=== PATIENT | female | born 1960 | race American Indian/Alaskan Native ===

== ENCOUNTER 2020-08-15 07:06 | Day surgery (SDC) | payer BC | END 2020-08-15 07:07 | disposition home or self-care (01) | LOC: CATHLABREC 07:06 | PROVIDERS: ATTEND Internal Medicine | DX: R07.89 Other chest pain (principal); Z20.828 Contact with and (suspected) exposure to other viral communicable diseases; Z53.9 Procedure and treatment not carried out, unspecified reason | CPT/HCPCS: U0003 ==

== ENCOUNTER 2020-10-02 06:57 | Day surgery (SDC) | payer BC ==
[2020-10-02] MEDS ORDERED: ASPIRIN EC 325 MG TAB PO NR (07:23)
[2020-10-02] MEDS ORDERED: D5W/0.45% NACL 1,000 ML IV SCH (08:00)
[2020-10-02] MEDS ORDERED: SODIUM CHLORIDE 0.9% 500 ML 500 ML IV SCH (08:00)
[2020-10-02] MEDS ORDERED: HEPARIN/NS 5000 UNIT/500ML 1,000 ML IR ONE (08:16)
[2020-10-02 08:30] LABS: Basophils # (Auto) 0.1 K/mm3 (0.0-0.1); Basophils % (Auto) 0.8 % (0.0-1.8); Eosinophils # (Auto) 0.3 K/mm3 (0.0-0.4); Eosinophils % (Auto) 3.7 % (0.0-4.3); Hematocrit 39.2 % (30.3-42.9); Hemoglobin 12.8 gm/dl (10.1-14.3); Lymphocytes # (Auto) 1.7 K/mm3 (1.2-5.4); Lymphocytes % (Auto) 22.3 % (13.4-35.0); Mean Corpuscular HGB Conc 33 % (30-34); Mean Corpuscular Volume 78 fl (79-97); Monocytes # (Auto) 0.7 K/mm3 (0.0-0.8); Monocytes % (Auto) 9.3 % (0.0-7.3); Platelet Count 175 K/mm3 (140-440); Red Blood Count 5.02 M/mm3 (3.65-5.03); Red Cell Distribution Width 15.7 % (13.2-15.2)
[2020-10-02 08:39] LABS: INR 0.99 (0.87-1.13)
[2020-10-02 08:40] LABS: Partial Thromboplastin Time 38.7 Sec. (24.2-36.6)
[2020-10-02] MEDS: MIDAZOLAM 2 MG/2 ML INJ ONE ×2 (09:17→09:38)
[2020-10-02] MEDS: fentaNYL 100 MCG/2 ML INJ ONE ×2 (09:17→09:38)
[2020-10-02] MEDS: LIDOCAINE (2%) 20 MG/1 ML VIAL 20 ML MDV INFILTRATI ONE ×2 (09:17→09:41)
[2020-10-02] MEDS: VERAPAMIL 5 MG/2 ML INJ ONE ×2 (09:18→09:43)
[2020-10-02] MEDS: HEPARIN 10,000 UNITS/10 ML VIAL ONE ×2 (09:18→09:43)
[2020-10-02] MEDS: NITROGLYCERIN SYRINGE 3 ML ONE ×2 (09:19→09:43)
[2020-10-02] MEDS ORDERED: ONDANSETRON 4 MG/2 ML INJ ONE ×2 (09:51→11:12)
--- NOTE | 2020-10-02 10:22 | Short Stay Summary ---
Short Stay Documentation Date of service: 10/02/20 - History H&P: obtained from office - Allergies and Medications Current Medications: Allergies No Known Allergies Allergy (Unverified 08/15/20 08:45) Home Medications Medication Instructions Recorded Confirmed Last Taken Type Aspirin EC [Halfprin EC] 81 mg PO QDAY 10/02/20 10/02/20 10/01/20 History 81 mg AtorvaSTATin [Lipitor] 20 mg PO QHS 10/02/20 10/02/20 10/01/20 History 20 mg Baby Vitamin D3 2,000 mg PO DAILY 10/02/20 10/02/20 Unknown History Cetirizine HCl [ZyrTEC 10mg cap] 10 mg PO DAILY 10/02/20 10/02/20 10/01/20 History 10 mg Hydralazine HCl 50 mg PO BID 10/02/20 10/02/20 09/30/20 History 50 mg Losartan [Cozaar] 100 mg PO QDAY 10/02/20 10/02/20 09/30/20 History 100 mg Pantoprazole [Protonix] 40 mg PO QDAY 10/02/20 10/02/20 10/01/20 History 40 mg atenoloL [Tenormin] 50 mg PO BID 10/02/20 10/02/20 10/01/20 History 50 mg Active Medications Sodium Chloride (Nacl 0.9% 500 Ml) 500 mls @ 50 mls/hr IV DIRECT KAILA Stop: 10/02/20 17:59 Dextrose/Sodium Chloride (D5/0.45ns) 1,000 mls @ 50 mls/hr IV DIRECT KAILA Last Admin: 10/02/20 08:18 Dose: 50 mls/hr Documented by: - Brief post op/procedure progress note Date of procedure: 10/02/20 Pre-op diagnosis: Chest Pain, Abnormal MPI Stress Test Post-op diagnosis: other (Normal Coronaries) Procedure: [facility]- see dictated cath report Anesthesia: local Estimated blood loss: none Condition: stable - Disposition Condition at discharge: Good Disposition: DC-01 TO HOME OR SELFCARE - Discharge Diagnoses (1) Chest pain Status: Chronic (2) CKD (chronic kidney disease) Status: Chronic (3) HTN (hypertension) Status: Chronic (4) Normal coronary arteries Status: Chronic Short Stay Discharge Plan Activity: advance as tolerated Diet: low fat, low cholesterol, low salt Wound: open to air, keep clean and dry, per your surgeon's advice Follow up with: HELENA BRAY MD [Primary Care Provider] - 7 Days BEA DAVIS MD [Staff Physician] - 7 Days (F/u with Dr Patton in our [place] office on 10/19/20 at 9AM.)
[2020-10-02] MEDS ORDERED: ONDANSETRON 4 MG/2 ML INJ IV ONE (11:17)
[2020-10-02 13:34] VITALS: BP 132/78
--- NOTE | 2020-10-02 14:02 | Cardiac Catherization Report ---
LEFT HEART CATHETERIZATION PRIMARY CARE DOCTOR: ____ PRIMARY DOCTOR: Dr. Zhou CLINICAL INFORMATION: This is a 59-year-old patient with obesity, hypertension, hyperlipidemia, chest pain with abnormal cardiac PET, here for left heart catheterization. Procedure was done with moderate sedation started at 9:38 and finished at 9:49, which is 11 minutes of moderate sedation. Procedure was done via the right radial artery, sterile technique, local anesthesia, 6-Kiswahili radial sheath inserted. FINDINGS: Left system, JL3.5 catheter. Left main is large and patent, bifurcates into large caliber LAD that is patent. Diagonal 1 small caliber vessel, patent. Ramus is a medium to large caliber and patent. Circumflex is a small caliber vessel, patent. OM1 is a small caliber vessel, patent. RCA engaged with JR4, is a small to medium caliber vessel patent with a high bifurcation of the PDA and RV branch that are patent. Small PDA. LV gram done in BULGARIAN view shows normal LV function, LVEDP at 30-35 mmHg, LV is 133. Aortic is 132/85. No gradient across the aortic valve on pullback. 5-Kiswahili catheters all taken over guidewire, 6-Kiswahili radial sheath was discontinued. Radial band applied. No hematoma, no bleeding. SUMMARY: Left main patent, LAD patent, ramus patent, circumflex small patent, RCA patent with a small PDA with normal LV function and elevated left end-diastolic pressure. [facility]# [id number] NUVIA/ANNA
== END 2020-10-02 14:00 | disposition home or self-care (01) ==
LOC: CATHLABREC 06:57
PROVIDERS: ATTEND Internal Medicine
DX: R07.89 Other chest pain (principal); R94.39 Abnormal result of other cardiovascular function study; E78.5 Hyperlipidemia, unspecified; I12.9 Hypertensive chronic kidney disease with stage 1 through stage 4 chronic kidney disease, or unspecified chronic kidney disease; N18.9 Chronic kidney disease, unspecified; E66.9 Obesity, unspecified; Z68.42 Body mass index [BMI] 45.0-49.9, adult; Z79.899 Other long term (current) drug therapy; Z79.82 Long term (current) use of aspirin
CPT/HCPCS: 36415; 80048; 85025; 85610; 85730; 93005; 93458; 99156; C1894; J1644; J2250; J2405; J3010; Q9967